=== PATIENT | female | born 1965 | race African-American/Black ===

== ENCOUNTER 2017-09-20 17:58 | Emergency (ER) | payer BC ==
[~2017-09-20] VITALS: Ht 165.1 cm; Wt 113.4 kg
--- NOTE | 2017-09-20 18:10 | NUR ---
PT TO ED DT POSSIBLE ALLERGIC REACTION WITH SHRIMP. NOTED SWOLLEN TONGUE AND LIPS. MD AT BS FOR EVAL. VSS. MEDICATED ORDERED. IV ACCESS STARTED. FAMILY MEMBER AT BS. SAFETY AND COMFORT MEASURES PROVIDED. WILL MONITOR.
--- NOTE | 2017-09-20 18:15 | NUR ---
RT AT BS.
[2017-09-20] MEDS ORDERED: diphenhydrAMINE HCL 50 MG/ML VIAL ONE (18:19)
[2017-09-20] MEDS ORDERED: methylPREDNISolone SOD SUCC 125 MG/2ML VIAL ONE (18:19)
[2017-09-20] MEDS ORDERED: IPRATROPIUM NEB FS 0.5 MG/2.5 ML AMPUL.NEB ONE (18:20)
[2017-09-20] MEDS ORDERED: ALBUTEROL FS 2.5 MG/3 ML VIAL.NEB ONE (18:20)
[2017-09-20] MEDS ORDERED: EPINEPHRINE (1:1000) 1 MG/ML AMPUL ONE (18:21)
[2017-09-20] MEDS ORDERED: methylPREDNISolone SOD SUCC 125 MG/2ML VIAL IV ONE (18:30)
[2017-09-20] MEDS ORDERED: EPINEPHRINE (1:1000) MDV 30 MG/30ML VIAL SUBCUT ONE (18:30)
[2017-09-20] MEDS ORDERED: FAMOTIDINE/PF INJ 40 MG in IV D5W 250 ML IV ONE (18:30)
[2017-09-20] MEDS ORDERED: ALBUTEROL FS 2.5 MG/3 ML VIAL.NEB NEB ONE (18:30)
[2017-09-20] MEDS ORDERED: diphenhydrAMINE HCL 50 MG/ML VIAL IV ONE (18:30)
[2017-09-20] MEDS ORDERED: IPRATROPIUM NEB FS 0.5 MG/2.5 ML AMPUL.NEB NEB ONE (18:30)
--- NOTE | 2017-09-20 19:37 | NUR ---
Patient discharged to home in stable condition. Written and verbal after care instructions given. Patient verbalizes understanding of instruction. IV removed. Catheter intact and site benign. Pressure and 4x4 applied to site. No bleeding noted. Pt ambulatory with a steady gait, instructed not to drive. Accompanied by family. No further complaints.
[2017-09-20 19:39] VITALS: BP 151/69
== END 2017-09-20 19:41 | disposition home or self-care (01) ==
LOC: ER 18:05
DX: L27.2 Dermatitis due to ingested food (principal); I10 Essential (primary) hypertension; Z91.013 Allergy to seafood
CPT/HCPCS: 94640 ×2; 96365; 96372; 96375; 99284; A4606; J0171; J1200; J2930; J3490; J7060; Z7610